=== PATIENT | male | born 1990 | race Caucasian/White ===

== ENCOUNTER 2016-08-23 22:58 | Emergency (ER) | payer MEDICARE, MEDICAID ==
[~2016-08-23] VITALS: Ht 162.6 cm; Wt 99.8 kg
[~2016-08-23 22:58] MED LIST: CLOZARIL100 MG ORAL; METFORMIN HCL500 M1 ORAL; OMEGA-31000 M1 PO; TOPIRAMATE100 MG ORAL; UNOBMED; VITAMIN D PO; [UNRECOGNIZED DRUG - OTHER] PO
[2016-08-23 22:59] VITALS: BP 128/86
[2016-08-24 00:27] LABS: EOSINOPHILS % (AUTO) 0.7 % (0.0-3.0); LYMPHOCYTES % (AUTO) 31.3 % (20.0-45.0); MEAN CORPUSCULAR HEMOGLOBIN 28.5 PG (27.0-31.0); MEAN CORPUSCULAR HGB CONC 33.2 G/DL (32.0-36.0); MEAN CORPUSCULAR VOLUME 86 FL (80-99); MEAN PLATELET VOLUME 8.7 FL (6.5-10.1); MONOCYTES % (AUTO) 7.5 % (1.0-10.0); NEUTROPHILS % (AUTO) 59.5 % (45.0-75.0); PLATELET COUNT 198 K/UL (150-450); RED BLOOD COUNT 5.03 M/UL (4.70-6.10); RED CELL DISTRIBUTION WIDTH 12.9 % (11.6-14.8); WHITE BLOOD COUNT 11.7 K/UL (4.8-10.8)
[2016-08-24 00:31] LABS: ACETAMINOPHEN < 10 ug/mL (10-30); ALANINE AMINOTRANSFERASE 26 U/L (3-41); ALBUMIN/GLOBULIN RATIO 1.2 (1.0-2.7); ALCOHOL < 10 mg/dL; ANION GAP 15 (5-15); ASPARTATE AMINO TRANSFERASE 20 U/L (5-40); CALCIUM 9.3 mg/dL (8.6-10.2); CARBON DIOXIDE 23 mEQ/L (20-30); CHLORIDE 104 mEQ/L (98-107); CREATININE 0.9 mg/dL (0.7-1.2); GLOMERULAR FILTRATION RATE > 60 mL/min (>60); HEMOLYSIS 2; POTASSIUM 3.6 mEQ/L (3.4-4.9); SODIUM 142 mEQ/L (135-145); TOTAL PROTEIN 7.4 g/dL (6.6-8.7)
[2016-08-24 01:39] VITALS: BP 131/76
[2016-08-24 04:07] VITALS: BP 129/67
--- NOTE | 2016-08-24 04:27 | Emergency Room Report ---
History of Present Illness General Chief Complaint: Behavioral Complaint Source: Patient, Family Member, EMS Present Illness HPI 26-year-old male presents ED for evaluation. Per EMS patient is here because he feels "psychotic" tonight. Family called 911. Patient has psychiatric history and is on medications. On arrival patient states he feels okay. Denies any suicidal or homicidal ideation. Denies hearing voices. Mother states that patient does have lots of paranoia. Patient denies alcohol or drug use. No other aggravating or relieving factors. Denies any other associated symptoms Allergies: Coded Allergies: No Known Allergies (Unverified , 01/12/14) Patient History Past Medical History: psych hx Past Surgical History: none Pertinent Family History: none Social History: Denies: alcohol use, drug use, smoking Immunizations: UTD Reviewed Nursing Documentation: PMH: Agreed, PSxH: Agreed Review of Systems All Other Systems: negative except mentioned in HPI Physical Exam Vital Signs Date Time Temp Pulse Resp B/P Pulse Ox O2 Delivery O2 Flow Rate FiO2 08/23/16 22:34 97.7 105 16 128/86 97 Room Air Sp02 EP Interpretation: reviewed, normal General Appearance: no apparent distress, alert, GCS 15, non-toxic, obese Head: normocephalic, atraumatic Eyes: bilateral eye PERRL, bilateral eye normal inspection ENT: hearing grossly normal, normal pharynx, no angioedema, normal voice Neck: full range of motion, supple/symm/no masses Respiratory: chest non-tender, lungs clear, normal breath sounds, speaking full sentences Cardiovascular #1: regular rate, rhythm, no edema Cardiovascular #2: 2+ carotid (R), 2+ carotid (L), 2+ radial (R), 2+ radial (L) , 2+ dorsalis pedis (R), 2+ dorsalis pedis (L) Gastrointestinal: normal bowel sounds, non tender, soft, non-distended, no guarding, no rebound Rectal: deferred Genitourinary: normal inspection, no CVA tenderness Musculoskeletal: back normal, gait/station normal, normal range of motion, non- tender, calf tenderness Neurologic: alert, oriented x3, responsive, motor strength/tone normal, sensory intact, speech normal Psychiatric: memory normal, no suicidal/homicidal ideation, no delusions, anxious, other - flat affect Reflexes: 3+ bicep (R), 3+ bicep (L), 3+ tricep (R), 3+ tricep (L), 3+ knee (R) , 3+ knee (L) Skin: normal color, no rash, warm/dry, well hydrated Lymphatic: no adenopathy Medical Decision Making Diagnostic Impression: Primary Impression: Schizoaffective disorder Qualified Codes: F25.9 - Schizoaffective disorder, unspecified ER Course Hospital Course 26-year-old male presents ED for evaluation. States he feels psychotic. No SI or HI. No symptoms at this time Differential diagnoses include: withdrawal symtpoms, overdose of psychiatric medications, drug ingestion, sepsis Clinical course Patient placed on stretcher. On rayon coner. After initial history and physical I ordered labs, U. tox Labs-electrolytes normal, aspirin/Tylenol levels normal, EtOH level normal, U. tox negative I told to mother. She feels comfortable having patient being discharged he feels better. I also spoke to the father; he is comfortable having the patient come home however the patient states he feels paranoid and would like to sleep in the ER overnight. Father states he'll picker operator the patient in the morning Patient slept in ER overnight. Feels better in the morning. Like to be discharged. I identify no acute psychiatric condition requiring emergent evaluation i. I feel this is a highly complex case requiring extensive working including EKG/Rhythm strip, Xray/CT/US, Blood/urine lab work, repeat exams while in ED, and administration of strong opiates/narcotics for pain control, admission to hospital or close patient follow up. Diagnosis - schizoaffective disorder Stable and discharged to home. Followup with PMD/psychiatrist. Return to ED if symptoms recur or worsen Labs Test 08/23/16 23:55 White Blood Count 11.7 K/UL (4.8-10.8) Red Blood Count 5.03 M/UL (4.70-6.10) Hemoglobin 14.4 G/DL (14.2-18.0) Hematocrit 43.3 % (42.0-52.0) Mean Corpuscular Volume 86 FL (80-99) Mean Corpuscular Hemoglobin 28.5 PG (27.0-31.0) Mean Corpuscular Hemoglobin Concent 33.2 G/DL (32.0-36.0) Red Cell Distribution Width 12.9 % (11.6-14.8) Platelet Count 198 K/UL (150-450) Mean Platelet Volume 8.7 FL (6.5-10.1) Neutrophils (%) (Auto) 59.5 % (45.0-75.0) Lymphocytes (%) (Auto) 31.3 % (20.0-45.0) Monocytes (%) (Auto) 7.5 % (1.0-10.0) Eosinophils (%) (Auto) 0.7 % (0.0-3.0) Basophils (%) (Auto) 1.0 % (0.0-2.0) Sodium Level 142 mEQ/L (135-145) Potassium Level 3.6 mEQ/L (3.4-4.9) Chloride Level 104 mEQ/L (98-107) Carbon Dioxide Level 23 mEQ/L (20-30) Anion Gap 15 (5-15) Blood Urea Nitrogen 16 mg/dL (7-23) Creatinine 0.9 mg/dL (0.7-1.2) Estimat Glomerular Filtration Rate > 60 mL/min (>60) Glucose Level 108 mg/dL (74-106) Calcium Level 9.3 mg/dL (8.6-10.2) Total Bilirubin 0.2 mg/dL (0.0-1.2) Aspartate Amino Transf (AST/SGOT) 20 U/L (5-40) Alanine Aminotransferase (ALT/SGPT) 26 U/L (3-41) Alkaline Phosphatase 53 U/L (40-129) Total Protein 7.4 g/dL (6.6-8.7) Albumin 4.1 g/dL (3.5-5.2) Globulin 3.3 g/dL Albumin/Globulin Ratio 1.2 (1.0-2.7) Salicylates Level < 1 mg/dL (10-30) Urine Opiates Screen Negative (NEGATIVE) Acetaminophen Level < 10 ug/mL (10-30) Urine Barbiturates Screen Negative (NEGATIVE) Phencyclidine (PCP) Screen Negative (NEGATIVE) Urine Amphetamines Screen Negative (NEGATIVE) Urine Benzodiazepines Screen Negative (NEGATIVE) Urine Cocaine Screen Negative (NEGATIVE) Urine Marijuana (THC) Screen Negative (NEGATIVE) Serum Alcohol < 10 mg/dL Last Vital Signs Date Time Temp Pulse Resp B/P Pulse Ox O2 Delivery O2 Flow Rate FiO2 08/24/16 04:07 97.7 84 16 129/67 99 Room Air Status: improved Disposition: HOME, SELF-CARE Condition: Stable Referrals: NOT CHOSEN ALAN/,REFERRING (PCP) MIRIAM KHAN M.D. Aug 24, 2016 04:27
[2016-08-24 06:22] VITALS: BP 132/76
[2016-08-24 06:23] VITALS: BP 132/76
--- NOTE | 2016-08-30 14:15 | IOP Daily Group Progress Note ---
IOP Daily Group Progress Note Treatment Plan/Target Problem: Date: Aug 30, 2016 Problem: impaired thoughts Program: reflections Group Reflections - : group 1 (9:40am-10:25am) Therapy Focus/Approach of Group: process Goal(s) of Group: explore relationships to family, identify activities to improve mood, identify mood, impact of current issues on mood, interpersonal relationships, verbalize current thoughts and mood Observations: attentive, concrete thinking, depressed mood, difficulty engaging in discussion, flat affect, lethargic, low energy, participated, responded to prompts Staff Intervention: assessed for safety/suicidality, assessed pt's current mood , encouraged patient participation, clarified pt issues, facilitated discussion , prompted pt, provided support, summarized Staff Intervention: Process: Therapist has patients identify current mood and feelings. Therapist provided individuals a safe and comfortable place where they can work out problems and emotional issues. The pt stated "I am feeling anxious today and tense" Rod Finisher asked what may be happening is his life that may be causing this feeling, pt unable to answer. INDRA VELASCO Aug 30, 2016 14:15
--- NOTE | 2016-08-30 16:35 | IOP Daily Group Progress Note ---
IOP Daily Group Progress Note Treatment Plan/Target Problem: Date: Aug 30, 2016 Problem: impaired thoughts Program: reflections Group Reflections - : group 2 (10:35am-11:20am) Therapy Focus/Approach of Group: skills Goal(s) of Group: communication skills, coping tools for symptoms, counteracting negative thinking, decreasing isolation, identify activities to improve mood, impact of current issues on mood, improving self esteem, increasing independence, positive thoughts to improve mood, socialization skills , stress reduction, support systems Observations: anxious, attentive, blunted, concrete thinking, depressed mood, difficulty engaging in discussion, engaged, focused, guarded, nervous, participated, passive, pressured speech, self disclosing, responded to prompts, withdrawn Staff Intervention: assessed for safety/suicidality, assessed pt's current mood , assisted identifying coping tools, encouraged patient participation, clarified pt issues, facilitated discussion, normalized feelings, prompted pt, provided psycho-education, provided reassurance, provided support, reflective listening, summarized Staff Intervention: Pt was mod-open and mod-active in Skills Group discussion this morning. He shared that he has finished the last book he was reading and is discussing which new one to order with one of the other group members. Pt says he enjoys his reading because it "keeps my mind active" and, "teaches me about other peoples, times, and places. PATRICIO SOLIS Aug 30, 2016 16:35
== END 2016-08-24 06:23 | disposition home or self-care (01) ==
LOC: EDBD 22:58 → EMR 23:59
DX: F25.9 Schizoaffective disorder, unspecified (principal)
CPT/HCPCS: 36415; 80053; 80300; 85025; 99283; G0480; 80329